=== PATIENT | female | born 1985 | race Caucasian/White ===

== ENCOUNTER → 2020-06-27 | Outpatient (REF) | payer OTHER ==
[2020-06-27 13:42] LABS: HEMATOCRIT 40.6 % (36.0-47.0); HEMOGLOBIN 13.2 g/dl (12.0-15.5); MEAN CORPUSCULAR HEMOGLOBIN 31.3 pg (27.0-33.0); MEAN CORPUSCULAR HGB CONC 32.5 g/dl (32.0-36.5); MEAN CORPUSCULAR VOLUME 96.2 fl (80.0-96.0); PLATELET COUNT, AUTOMATED 245 10^3/uL (150-450); RED BLOOD COUNT 4.22 10^6/uL (4.00-5.40); WHITE BLOOD COUNT 7.4 10^3/uL (4.0-10.0)
[2020-06-27 14:13] LABS: HCG, SERUM QUANTITATIVE 925 MIU/ML
[2020-06-27 14:22] LABS: HEPATITIS B SURFACE ANTIGEN NEGATIVE (NEGATIVE)
[2020-06-27 14:50] LABS: HEPATITIS C VIRUS ABY INDEX < 0.0 INDEX (<0.8)
[2020-06-27 14:51] LABS: HIV 1&2 SCREEN CENTAUR NEGATIVE (NEGATIVE)
== END ==
LOC: M LAB REF 12:12
PROVIDERS: ATTEND Obstetrics & Gynecology
DX: O36.80X0 Pregnancy with inconclusive fetal viability, not applicable or unspecified (principal); Z3A.00 Weeks of gestation of pregnancy not specified

== ENCOUNTER → 2020-06-28 | Outpatient (CLI) | payer OTHER ==
--- NOTE | 2020-06-28 18:59 | REP ---
INDICATION: DATING/VIABILITY COMPARISON: None. TECHNIQUE: Transabdominal and transvaginal 1st trimester obstetrical ultrasound with color Doppler evaluation. FINDINGS: Heterogeneous uterus measures 10.4 x 5.3 x 5.9 cm and ill-defined myomatous changes are suspected. The endometrial complex is thickened and demonstrates few small endometrial cysts. A suspected gestational sac without yolk sac or pole is identified. Mean sac diameter of 6 mm corresponds to 4 weeks 3 days gestational age. Bilateral ovaries are relatively normal. Right ovary measures 2.6 x 2.2 x 1.1 cm. Left ovary measures 3.8 x 2.3 x 2.0 cm and includes 2.2 cm complex likely corpus luteum cyst. IMPRESSION: 1. Heterogeneous uterus with suspected myomatous changes. 2. Empty gestational sac with mean sac diameter at 4 weeks 3 days gestational age. Differential diagnosis includes early as well as blighted ovum. Correlation with serial HCG levels and repeat ultrasound are recommended. <Electronically signed by Chris Calloway > 06/28/20 [id number]
== END ==
LOC: M WHC 11:26 → EDUNIT# 11:30
PROVIDERS: ATTEND Obstetrics & Gynecology
DX: O36.80X0 Pregnancy with inconclusive fetal viability, not applicable or unspecified (principal); N83.202 Unspecified ovarian cyst, left side; Z3A.01 Less than 8 weeks gestation of pregnancy; O34.81 Maternal care for other abnormalities of pelvic organs, first trimester; N85.8 Other specified noninflammatory disorders of uterus; O34.591 Maternal care for other abnormalities of gravid uterus, first trimester